=== PATIENT | female | born 1990 | race African-American/Black ===

== ENCOUNTER 2016-12-27 21:23 | Emergency (ER) | payer SELFPAY ==
--- NOTE | 2016-12-28 19:22 | ER ---
ADMIT: 12/27/2016 RM/LOC: ER [facility] MR#: [id number] [address] [address] [address] [place] [address] Emergency Room Report SEX: F AGE: 26 : 1990 DATE: 12/27/2016 HISTORY OF PRESENT ILLNESS: The patient is a 26-year-old female with no past medical history, came to the ER with a chief complaint of 3 days of crampy periumbilical abdominal pain. The patient states the pain is crampy and is intermittent and is not related to eating or position. Sometimes per patient, pain goes to mild and sometimes it is moderate and more severe. The patient denies any back pain or burning with urination or hematuria and denies any vaginal discharge, and states that last 2 days ago, her mensuration finished. At the moment, the patient is moderate. PHYSICAL EXAMINATION: VITAL SIGNS: The patient was afebrile in the ER. Vitals were stable. The patient was not tachycardic. GENERAL: The patient was in [id number]-tr-[id number] distress. HEAD and NECK: Normal. CHEST: Clear bilaterally. HEART: Normal heart sounds. ABDOMEN: Has no obvious tenderness or rebound or guarding. There is no CVA tenderness. EMERGENCY ROOM COURSE: Urine was positive for multiple rbc's. CT of the abdomen and pelvis was negative for any kidney stones or other obvious abnormalities. Pelvic ultrasound was negative for any abnormalities or ovarian mass or ovarian cyst or abnormal free fluid in cul-de-sac. The patient's pain was controlled. The patient was re-examined, the pain was significantly controlled and the patient's exam was benign again. The patient was discharged to home, she also prefers to go to home and follow up with the primary doctor as needed. The patient was mentioned that she is more than welcome to come back if there are any questions or concerns and return of symptoms for further followups and treatments. The patient agreed and was discharged to home. Eddie García MD/ ruth JOB #: [id number] CC: Eddie García MD, Attending Physician Sheng Mason MD, Family Physician
== END 2016-12-28 05:20 | disposition home or self-care (01) ==
LOC: ER 21:23
DX: R10.33 Periumbilical pain (principal); F17.210 Nicotine dependence, cigarettes, uncomplicated; Z98.51 Tubal ligation status